=== PATIENT | female | born 1975 | race Caucasian/White ===

== ENCOUNTER 2022-01-09 18:48 | Emergency (ER) | payer OTHER ==
[~2022-01-09] VITALS: Ht 157.5 cm; Wt 54.4 kg
--- NOTE | 2022-01-09 18:53 | NUR ---
Placed in room 08 . Placed on nuclear monitoring technician, blood pressure machine and pulse oximeter. To gown for exam. Side rails up.
[2022-01-09 18:54] VITALS: BP_SYST 106
--- NOTE | 2022-01-09 18:55 | NUR ---
Pt in bed 8 and changed into gown. Connected pt to ekg monitor. EMT's placed an 18g IV on left AC with NS 0.9 1000ml running bolus. VSS. Pt is A&Ox4. Skin intact. Pt states she feels lightheaded. Placed pt in supine position. Denies n/v and no chest pain. No sob. Pt currently having vaginal bleeding. Bed in lowest position.
--- NOTE | 2022-01-09 19:00 | NUR ---
ER physician at bedside.
[2022-01-09] MEDS ORDERED: NACL 0.9% 1,000 ML IV ONE (19:15)
--- NOTE | 2022-01-09 19:20 | NUR ---
Labt tech at bedside drawing blood work.
--- NOTE | 2022-01-09 19:29 | NUR ---
Pelvic exam tray at bedside.
[2022-01-09 19:47] LABS: BASOPHILS % (AUTO) 0.6 % (0.0-2.0); EOSINOPHILS # (AUTO) 0.1 K/uL (0.0-0.4); EOSINOPHILS % (AUTO) 2.1 % (0.0-4.0); HEMATOCRIT 35.7 % (36-48); HEMOGLOBIN 11.9 g/dL (12.0-16.0); LYMPHOCYTES # (AUTO) 1.7 K/uL (1.0-5.5); LYMPHOCYTES % (AUTO) 26.4 % (20.5-51.5); MEAN CORPUSCULAR HEMOGLOBIN 31 pg (27-31); MEAN CORPUSCULAR HGB CONC 33 % (32-36); MEAN CORPUSCULAR VOLUME 94 fL (79.0-98.0); MONOCYTES # (AUTO) 0.5 K/uL (0.0-1.0); MONOCYTES % (AUTO) 7.6 % (1.7-9.3); NEUTROPHILS # (AUTO) 4.1 K/uL (1.8-7.7); NEUTROPHILS % (AUTO) 63.3 % (40.0-70.0); PLATELET COUNT (AUTO) 202 K/uL (130-430); RED BLOOD CELL COUNT(AUTO) 3.81 MIL/uL (4.2-6.2); RED CELL DISTRIBUTION WIDTH 12.4 % (9.0-15.0); WHITE BLOOD COUNT (AUTO) 6.5 K/uL (4.8-10.8)
[2022-01-09 19:50] LABS: CALCIUM 8.4 mg/dL (8.4-11.0); CREATININE 0.63 mg/dL (0.55-1.30); POTASSIUM 4.1 mmol/L (3.5-5.1)
[2022-01-09 19:56] LABS: PROTHROMBIN TIME 10.9 SECS (9.5-12.5); TOTAL BILIRUBIN 0.4 mg/dL (0.0-1.0)
[2022-01-09 20:49] VITALS: BP_SYST 106
--- NOTE | 2022-01-09 20:50 | NUR ---
Patient given written and verbal discharge instructions and verbalizes understanding. ER MD discussed with patient the results and treatment provided. Patient in stable condition. ID arm band removed. Patient educated on pain management and to follow up with PMD. Pain Scale . Opportunity for questions provided and answered. Medication side effect fact sheet provided.
== END 2022-01-09 20:50 | disposition home or self-care (01) ==
LOC: SED 18:48
DX: N93.9 Abnormal uterine and vaginal bleeding, unspecified (principal)
CPT/HCPCS: 36415; 80053; 84703; 85025; 85610; 85730; 96360; 99283; J7030